=== PATIENT | female | born 1980 | race Caucasian/White ===

== ENCOUNTER → 2018-05-31 | Outpatient (CLI) | payer OTHER ==
[~2018-05-31] MED LIST: HYDR-3240 PO; IBUP-1222 PO; PNV1TABL4 PO
== END | disposition home or self-care (01) ==
LOC: CFH 09:45
PROVIDERS: ATTEND Specialist
DX: Z12.31 Encounter for screening mammogram for malignant neoplasm of breast (principal)
CPT/HCPCS: 77067

== ENCOUNTER → 2018-07-13 | Outpatient (CLI) | payer OTHER | END | disposition home or self-care (01) | LOC: RAD 14:55 | PROVIDERS: ATTEND Family Medicine | DX: M79.604 Pain in right leg (principal); Z86.718 Personal history of other venous thrombosis and embolism ==